=== PATIENT | female | born 1940 | race Caucasian/White ===

== ENCOUNTER 2017-09-18 19:35 | Observation (INO) | payer OTHER, BC ==
--- NOTE | 2017-09-18 20:26 | EDPHY ---
H & P Smoking Status: Never smoked Time Seen by Provider: 09/18/17 20:25 HPI/ROS: Chief complaint. Abdominal pain HPI. 77-year-old female with abdominal pain that began this evening. She was at home and after the abdominal pain got quite severe she got up to go to the bathroom got dizzy and fell. Unwitnessed. There was apparent loss of consciousness. Then she could not get up. She has subsequently had lots of diarrhea and continued mid abdominal cramping. She injured her left arm and right leg however has good range of motion. No chest pain or shortness of breath. Patient had a subarachnoid hemorrhage in June 2017. She has a headache. Posterior head pain and upper neck pain but otherwise no back pain. Recent UTI last week treated with Cipro. ROS Constitutional. Generalized weakness Eyes. no problems with vision ENT. no sore throat, no nasal drainage Cardiovascular. no chest pain Respiratory. no shortness of breath, no cough Abdominal. Mid abdominal pain with diarrhea but no nausea or vomit . no problems urinating MS. Neck pain Skin. no rash Lymph. no swollen glands Neuro. Headache and dizziness and difficulty walking (Julito Gaspar S) Past Medical/Surgical History: Osteoporosis, dyslipidemia, hypothyroid, SAH (Julito Gaspar S) Social History: Single, nonsmoker, no alcohol (Julito Gaspar S) Physical Exam: General Appearance: The alert well-developed female mild distress vital signs are stable Eyes: Pupils equal and round no pallor or injection. ENT, no evidence of head trauma but posterior headache. Respiratory: There are no retractions, lungs are clear to auscultation. Cardiovascular: Regular rate and rhythm. Gastrointestinal: Abdomen is soft mid abdominal pain. No masses. Normal bowel sounds Neurological: Awake and alert, sensory and motor exams grossly normal. Skin: Warm and dry, no rashes. Musculoskeletal: Neck pain. No T, L, S pain Extremities symmetrical, full range of motion. Psychiatric: Patient is oriented X 3, there is no agitation. (Julito Gaspar S) Constitutional: Initial Vital Signs Temperature (C) 36.8 C 09/18/17 19:39 Heart Rate 83 09/18/17 19:39 Respiratory Rate 18 09/18/17 19:39 Blood Pressure 129/90 H 09/18/17 19:39 O2 Sat (%) 97 07/10/18 19:39 O2 Delivery Mode Room Air Allergies/Adverse Reactions: aspirin Allergy (Unknown, Verified 03/31/13 16:37) codeine [Codeine] Allergy (Unknown, Verified 03/31/13 16:37) epinephrine [Epinephrine] Allergy (Unknown, Verified 03/31/13 16:37) latex [Latex] Allergy (Unknown, Verified 03/31/13 16:37) tetracycline [Tetracycline] Allergy (Unknown, Verified 03/31/13 16:37) "pain killers" Allergy (Unknown, Uncoded 03/31/13 16:37) Home Medications: Medication Instructions Recorded LEVOTHYROXINE SODIUM [Synthroid] 100 mcg PO 04/03/11 Anucort-Hc 03/31/13 Flonase 03/31/13 ZERIT 03/31/13 Medical Decision Making - Diagnostics EKG Interpretation: EKG interpreted by me shows normal sinus rhythm normal interval. Left axis deviation. QRS normal there is no significant ST elevation or depression. No arrhythmia. The rate is 90 (Julito Gaspar) Imaging Results: Imaging Impressions Abdomen/Pelvis CT 09/18/17 20:49 Impression: No acute posttraumatic abnormality identified. Results called to Julito Gaspar at 10:08 PM. Final results are concordant with the preliminary interpretation. General information for patients regarding this examination can be found at [email or web address]. If you have questions or comments about this report, please contact me at (hospital) or [phone] (cell). Cervical Spine CT 09/18/17 20:49 Impression: 1. No acute posttraumatic abnormality identified. 2. Arnold-Chiari type I. 2. CT Cervical Spine Without Contrast, 21:26 History: Trauma. Fall. Technique: Multislice helical CT through the cervical spine without contrast from the skull base to T1. Soft tissue and bone evaluation is performed. Sagittal and coronal reconstructions are obtained and reviewed. Dose reduction techniques were utilized. Findings: Cervical alignment is anatomic except for mild retrolisthesis at C5- C6 where the disk space is moderately narrowed, associated with marginal erosive change and small osteophytes. The craniocervical junction is normally aligned. The odontoid process is intact. No vertebral body or posterior element fracture is identified. There is fusion of the right C2-C3 facet joints. 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 The cervical thoracic junction is normally aligned. There is no evidence for epidural or prevertebral hematoma. Impression: No acute posttraumatic abnormality identified. Results called to Dr. Leonel Ro at 21:57 PM. Final results are concordant with the initial interpretation. General information for patients regarding this examination can be found at [email or web address]. If you have questions or comments about this report, please contact me at (hospital) or [phone] (cell). Head CT 09/18/17 20:49 Impression: 1. No acute posttraumatic abnormality identified. 2. Arnold-Chiari type I. 2. CT Cervical Spine Without Contrast, 21:26 History: Trauma. Fall. Technique: Multislice helical CT through the cervical spine without contrast from the skull base to T1. Soft tissue and bone evaluation is performed. Sagittal and coronal reconstructions are obtained and reviewed. Dose reduction techniques were utilized. Findings: Cervical alignment is anatomic except for mild retrolisthesis at C5- C6 where the disk space is moderately narrowed, associated with marginal erosive change and small osteophytes. The craniocervical junction is normally aligned. The odontoid process is intact. No vertebral body or posterior element fracture is identified. There is fusion of the right C2-C3 facet joints. 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 The cervical thoracic junction is normally aligned. There is no evidence for epidural or prevertebral hematoma. Impression: No acute posttraumatic abnormality identified. Results called to Dr. Leonel Ro at 21:57 PM. Final results are concordant with the initial interpretation. General information for patients regarding this examination can be found at [email or web address]. If you have questions or comments about this report, please contact me at (hospital) or [phone] (cell). Chest X-Ray 09/18/17 20:50 Impression: Negative. Chest x-ray reviewed by me is normal CT head negative for trauma. She does have achy arteries type [address] cervical spine negative for trauma Noncontrast abdominal CT shows no significant pathology. Distended gallbladder an bladder (Julito Gaspar) Procedures: IV normal saline, monitor (Julito Gaspar) ED Course/Re-evaluation: Stool sent for Clostridium difficile check as the patient has been recently on antibiotics. Patient continues to have evidence for urinary tract infection though she has been on both Macrobid and Cipro. She is given cephalexin in the emergency department. Urine is sent for culture and sensitivity Re-evaluation at 10:10 p.m.. Patient is stable. Patient and daughters and I discussed imaging and lab results. We discussed treatment plan including recommendation for admission. They expressed understanding and agreement ( Julito Gaspar) [id number]: Patient admitted to the hospital for syncope, generalized weakness, diarrhea, and he recurrent UTI. Spoke with Dr. Villanueva, who agrees to admit. (Jitendra Kwan) Differential Diagnosis: I considered intracranial bleeding as she recently has had subarachnoid hemorrhage. I considered cervical spine injury. Patient had a syncopal episode possibly vasovagal as she had strong abdominal pain. She has been on 2 antibiotics and continues to have a UTI. She certainly may have Clostridium difficile. No obvious evidence for acute coronary syndrome (Julito Gaspar) Care Turn Over: Care to Dr. Kwan at 10:15 p.m. (Julito Gaspar) - Data Points Laboratory Results: Laboratory Results 09/18/17 19:55 09/18/17 19:55 09/18/17 09/18/17 09/18/17 21:44 21:24 20:50 WBC RBC Hgb Hct MCV MCH MCHC RDW Plt Count MPV Neut % (Auto) Lymph % (Auto) [place] % (Auto) Eos % (Auto) Baso % (Auto) Nucleat RBC Rel Count Absolute Neuts (auto) Absolute Lymphs (auto) Absolute Monos (auto) Absolute Eos (auto) Absolute Basos (auto) Absolute Nucleated RBC Immature Gran % Immature Gran # Sodium Potassium Chloride Carbon Dioxide Anion Gap BUN Creatinine Estimated GFR Glucose Calcium POC Troponin I 0.00 ng/mL ng/mL (0.00-0.08) Lipase Urine Color YELLOW Urine Appearance CLEAR Urine pH 6.0 (5.0-7.5) Ur Specific [place] 1.013 (1.002-1.030) Urine Protein NEGATIVE (NEGATIVE) Urine Ketones NEGATIVE (NEGATIVE) Urine Blood 3+ H (NEGATIVE) Urine Nitrate NEGATIVE (NEGATIVE) Urine Bilirubin NEGATIVE (NEGATIVE) Urine Urobilinogen NEGATIVE EU EU (0.2-1.0) Ur Leukocyte Esterase 3+ H (NEGATIVE) Urine RBC 15-25 /hpf H /hpf (0-3) Urine WBC 25-50 /hpf H /hpf (0-3) Ur Epithelial Cells TRACE /lpf /lpf (NONE-1+) Urine Mucus TRACE /lpf /lpf (NONE-1+) Urine Glucose NEGATIVE (NEGATIVE) C. difficile Tox (PCR) Pending 09/18/17 09/18/17 19:55 19:55 WBC 6.86 10^3/uL 10^3/uL (3.80-9.50) RBC 4.62 10^6/uL 10^6/uL (4.18-5.33) Hgb 13.2 g/dL g/dL (12.6-16.3) Hct 39.6 % % (38.0-47.0) MCV 85.7 fL fL (81.5-99.8) MCH 28.6 pg pg (27.9-34.1) MCHC 33.3 g/dL g/dL (32.4-36.7) RDW 12.8 % % (11.5-15.2) Plt Count 328 10^3/uL 10^3/uL (150-400) MPV 9.5 fL fL (8.7-11.7) Neut % (Auto) 62.1 % % (39.3-74.2) Lymph % (Auto) 28.0 % % (15.0-45.0) [place] % (Auto) 7.9 % % (4.5-13.0) Eos % (Auto) 1.3 % % (0.6-7.6) Baso % (Auto) 0.4 % % (0.3-1.7) Nucleat RBC Rel Count 0.0 % % (0.0-0.2) Absolute Neuts (auto) 4.26 10^3/uL 10^3/uL (1.70-6.50) Absolute Lymphs (auto) 1.92 10^3/uL 10^3/uL (1.00-3.00) Absolute Monos (auto) 0.54 10^3/uL 10^3/uL (0.30-0.80) Absolute Eos (auto) 0.09 10^3/uL 10^3/uL (0.03-0.40) Absolute Basos (auto) 0.03 10^3/uL 10^3/uL (0.02-0.10) Absolute Nucleated RBC 0.00 10^3/uL 10^3/uL (0-0.01) Immature Gran % 0.3 % % (0.0-1.1) Immature Gran # 0.02 10^3/uL 10^3/uL (0.00-0.10) Sodium 132 mEq/L L mEq/L (135-145) Potassium 3.5 mEq/L mEq/L (3.3-5.0) Chloride 102 mEq/L mEq/L (97-110) Carbon Dioxide 22 mEq/l mEq/l (22-31) Anion Gap 8 mEq/L mEq/L (8-16) BUN 18 mg/dL mg/dL (7-23) Creatinine 0.6 mg/dL mg/dL (0.6-1.0) Estimated GFR > 60 Glucose 118 mg/dL H mg/dL (70-100) Calcium 9.5 mg/dL mg/dL (8.5-10.4) POC Troponin I Lipase 76 IU/L IU/L (23-300) Urine Color Urine Appearance Urine pH Ur Specific [place] Urine Protein Urine Ketones Urine Blood Urine Nitrate Urine Bilirubin Urine Urobilinogen Ur Leukocyte Esterase Urine RBC Urine WBC Ur Epithelial Cells Urine Mucus Urine Glucose C. difficile Tox (PCR) Medications Given: Discontinued Medications Cephalexin HCl (Keflex) 500 mg PO EDNOW ONE PRN Reason: Protocol Stop: 09/18/17 21:42 Last Admin: 09/18/17 21:57 Dose: 500 mg Sodium Chloride (Ns) 1,000 mls @ 0 mls/hr IV ONCE ONE; Wide Open PRN Reason: Protocol Stop: 09/18/17 20:49 Last Admin: 09/18/17 21:01 Dose: 1,000 mls Point of Care Test Results: Chemistry 09/18/17 21:24 POC Troponin I 0.00 ng/mL ng/mL (0.00-0.08) Departure - Departure Disposition: [facility] Inpatient Acute Clinical Impression: Abdominal pain Qualifiers: Abdominal location: periumbilical Qualified Code(s): R10.33 - Periumbilical pain Syncope Qualifiers: Syncope type: unspecified Qualified Code(s): R55 - Syncope and collapse Urinary tract infection Qualifiers: Urinary tract infection type: acute cystitis Hematuria presence: without hematuria Qualified Code(s): N30.00 - Acute cystitis without hematuria Condition: Fair
[2017-09-18] MEDS ORDERED: NS 1,000 ML IV ONE (20:48)
[2017-09-18 20:58] LABS: PLATELET COUNT 328 10^3/uL (150-400)
[2017-09-18] MEDS ORDERED: IOPAMIDOL (ISOVUE-300) 100 ML BTL ONE (21:13)
[2017-09-18] MEDS ORDERED: CEPHALEXIN 500 MG CAP PO ONE (21:41)
--- NOTE | 2017-09-18 21:56 | CPEKG ---
Heart Rate: 90 RR Interval: 667 P-R Interval: 196 QRSD Interval: 66 QT Interval: 376 QTC Interval: 460 P [place]: 47 QRS [place]: -25 T Wave [place]: 49 EKG Severity - OTHERWISE NORMAL ECG - EKG Impression: SINUS RHYTHM EKG Impression: BORDERLINE LEFT AXIS DEVIATION Electronically Signed By: Julito Gaspar 18-Sep-2017 22:30:29
[2017-09-18] MEDS ORDERED: ACETAMINOPHEN 325 MG TAB PO PRN (22:23)
[2017-09-18] MEDS ORDERED: ONDANSETRON 4 MG/2 ML VIAL IVP PRN (22:23)
[2017-09-18] MEDS ORDERED: NS 1,000 ML IV SCH (22:30)
--- NOTE | 2017-09-18 23:14 | PDGENHP ---
History and Physical - Chief Complaint Abdominal pain, diarrhea, Syncope - History of Present Illness Source-patient provides history appears reliable. Patient's daughter at bedside. EMR was reviewed and case discussed with ED provider. 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 Approximately 5:00 p.m. Patient reports that she had sudden onset of diarrhea. She also developed lower abdominal cramping. She had positive abdominal distension. No nausea vomiting or fevers chills. Patient with the recent diagnosis of a UTI she is status post completed course of ciprofloxacin and just recently 2 days of doxycycline for continued abnormal UA. Patient reports that she has a history of dysuria related to interstitial cystitis for which she has previously undergone injections but she is unsure if this was her Botox or DMSO. Patient denies any melena or hematochezia stool is normal color. She has not had any recent sick contacts. This evening patient patient still did up to walk to the bathroom when she subsequently developed some lightheadedness and had a syncopal episode. She is not sure how long she had loss of consciousness. She did report that afterwards she had left arm pain right knee pain headache and neck pain that was worse from her baseline. She denies any numbness tingling or changes in vision. CT head neck abdomen pelvis were obtained in the emergency department that did not show any acute findings. Patient currently reports that her abdominal pain and distention have improved but still slightly present. She has not had any additional episodes of diarrhea since arrival to the floor. Patient has been able to void without complaints of retention. History Information - Allergies/Home Medication List Allergies/Adverse Reactions: iodine Allergy (Severe, Verified 09/19/17 01:38) Anaphylaxis aspirin Allergy (Unknown, Verified 03/31/13 16:37) codeine [Codeine] Allergy (Unknown, Verified 03/31/13 16:37) epinephrine [Epinephrine] Allergy (Unknown, Verified 03/31/13 16:37) latex [Latex] Allergy (Unknown, Verified 03/31/13 16:37) tetracycline [Tetracycline] Allergy (Unknown, Verified 03/31/13 16:37) "pain killers" Allergy (Unknown, Uncoded 03/31/13 16:37) Home Medications: LEVOTHYROXINE SODIUM [Synthroid] 100 mcg PO 04/03/11 [Last Taken Unknown] Anucort-Hc 03/31/13 [Last Taken Unknown] Flonase 03/31/13 [Last Taken Unknown] ZYRTEC 09/19/17 [Last Taken Unknown] I have personally reviewed and updated: family history, medical history, social history, surgical history - Past Medical History Additional medical history: Hypothyroidism, hemorrhoids, allergic rhinitis, history of subarachnoid hemorrhage June 2017, UTI, Chiari malformation type 1. - Surgical History Additional surgical history: Cervical spine injections. - Family History Additional family history: Mother and siblings with HTN. Father with history of Parkinson's - Social History Smoking Status: Never smoked Alcohol Use: None Drug Use: None Additional social history: Patient lives at the [facility]. Review of Systems Review of Systems: ROS: 10pt was reviewed & negative except for what was stated in HPI & below Constitutional: Reports: no symptoms. Denies: chills, fever EENMT: Reports: no symptoms. Denies: blurred vision, nose congestion, sore throat Cardiac: Reports: syncope. Denies: chest pain, edema, palpitations Respiratory: Reports: no symptoms. Denies: cough, shortness of breath Gastrointestinal: Reports: abdominal pain (See HPI), diarrhea. Denies: vomitting, black stools, rectal bleeding, nausea Genitourinary: Reports: dysuria. Denies: flank pain, hematuria, incontinence, urgency Muscolosketal: Reports: joint pain (Neck pain), muscle pain (Neck) Skin: Reports: other (Vitiligo on her back left greater than right) Neurological: Reports: headache, pre-existing deficit (Slight right-sided weakness compared to the left since SAH.). Denies: emotional problems, numbness , tingling Hematologic/Lymphatic: Reports: no symptoms Immunologic/Allergy: Reports: other (Diet nausea) Physical Exam Physical Exam: Selected Entries 09/18/17 19:39 Heart Rate 83 Respiratory 18 Rate O2 Sat (%) 97 Temperature (C) 36.8 C Blood Pressure 129/90 H Mean Arterial 103 H Pressure (MAP) O2 Delivery Room Air Mode Temperature Oral Source Temp Pulse Resp BP Pulse Ox 36.8 C 83 18 125/75 H 95 09/18/17 19:39 09/18/17 21:02 09/18/17 21:02 09/18/17 21:02 09/18/17 21:02 Constitutional: no apparent distress, chronically ill appearing, other (NAD. Pleasant elderly frail-appearing female is lying quietly in bed. Daughter is at bedside.) Eyes: PERRL, anicteric sclera, EOMI, No scleral injection Ears, Nose, Mouth, Throat: moist mucous membranes, no oral mucosal ulcers, poor dentition (Edentulous on the upper dentition, few missing lower), other (No nasal discharge) Cardiovascular: regular rate and rhythym, systolic murmur (2/6 systolic murmur) , pulses symmetric bilaterally, No edema Peripheral Pulses: 1+: dorsalis-pedis (R), dorsalis-pedis (L) Respiratory: no respiratory distress, no rales or rhonchi, clear to auscultation , No expiratory wheeze, No inspiratory crackles, No respiratory distress Gastrointestinal: normoactive bowel sounds, no palpable masses, tenderness ( Patient complains of some mild discomfort to palpation over the lower abdomen.) , No gonzáles's sign, No guarding, No rebound, No distension Genitourinary: no bladder tenderness, No jones in urethra Skin: warm, normal color, no rashes or abrasions, other (Vitiligo on her back.) Musculoskeletal: full muscle strength, no muscle tenderness Neurologic: AAOx3, sensation intact bilaterally, other (Patient with generalized weakness. She is able to sit up independently. Right-sided weakness slightly noted compared to the left which patient reports is baseline. Grossly nonfocal exam otherwise.), No facial droop Psychiatric: interacting appropriately, not encephalopathic, thought process linear, flat affect, No depressed, No agitated Lab Data & Imaging Review 09/18/17 19:55 09/19/17 04:50 WBC 6.86 10^3/uL (3.80-9.50) 09/18/17 19:55 RBC 4.62 10^6/uL (4.18-5.33) 09/18/17 19:55 Hgb 13.2 g/dL (12.6-16.3) 09/18/17 19:55 Hct 39.6 % (38.0-47.0) 09/18/17 19:55 MCV 85.7 fL (81.5-99.8) 09/18/17 19:55 MCH 28.6 pg (27.9-34.1) 09/18/17 19:55 MCHC 33.3 g/dL (32.4-36.7) 09/18/17 19:55 RDW 12.8 % (11.5-15.2) 09/18/17 19:55 Plt Count 328 10^3/uL (150-400) 09/18/17 19:55 MPV 9.5 fL (8.7-11.7) 09/18/17 19:55 Neut % (Auto) 62.1 % (39.3-74.2) 09/18/17 19:55 Lymph % (Auto) 28.0 % (15.0-45.0) 09/18/17 19:55 [place] % (Auto) 7.9 % (4.5-13.0) 09/18/17 19:55 Eos % (Auto) 1.3 % (0.6-7.6) 09/18/17 19:55 Baso % (Auto) 0.4 % (0.3-1.7) 09/18/17 19: Nucleat RBC Rel Count 0.0 % (0.0-0.2) 09/18/17 19: Absolute Neuts (auto) 4.26 10^3/uL (1.70-6.50) 09/18/17 19:55 Absolute Lymphs (auto) 1.92 10^3/uL (1.00-3.00) 09/18/17 19:55 Absolute Monos (auto) 0.54 10^3/uL (0.30-0.80) 09/18/17 19:55 Absolute Eos (auto) 0.09 10^3/uL (0.03-0.40) 09/18/17 19:55 Absolute Basos (auto) 0.03 10^3/uL (0.02-0.10) 09/18/17 19:55 Absolute Nucleated RBC 0.00 10^3/uL (0-0.01) 09/18/17 19: Immature Gran % 0.3 % (0.0-1.1) 09/18/17 19:55 Immature Gran # 0.02 10^3/uL (0.00-0.10) 09/18/17 19:55 Sodium 132 mEq/L (135-145) L 09/18/17 19:55 Potassium 3.5 mEq/L (3.3-5.0) 09/18/17 19:55 Chloride 102 mEq/L (97-110) 09/18/17 19:55 Carbon Dioxide 22 mEq/l (22-31) 09/18/17 19:55 Anion Gap 8 mEq/L (8-16) 09/18/17 19:55 BUN 18 mg/dL (7-23) 09/18/17 19:55 Creatinine 0.6 mg/dL (0.6-1.0) 09/18/17 19:55 Estimated GFR > 60 09/18/17 19:55 Glucose 118 mg/dL (70-100) H 09/18/17 19:55 Calcium 9.5 mg/dL (8.5-10.4) 09/18/17 19:55 POC Troponin I 0.00 ng/mL (0.00-0.08) 09/18/17 21:24 Lipase 76 IU/L (23-300) 09/18/17 19:55 Urine Color YELLOW 09/18/17 20:50 Urine Appearance CLEAR 09/18/17 20:50 Urine pH 6.0 (5.0-7.5) 09/18/17 20:50 Ur Specific [place] 1.013 (1.002-1.030) 09/18/17 20:50 Urine Protein NEGATIVE (NEGATIVE) 09/18/17 20:50 Urine Ketones NEGATIVE (NEGATIVE) 09/18/17 20:50 Urine Blood 3+ (NEGATIVE) H 09/18/17 20:50 Urine Nitrate NEGATIVE (NEGATIVE) 09/18/17 20:50 Urine Bilirubin NEGATIVE (NEGATIVE) 09/18/17 20:50 Urine Urobilinogen NEGATIVE EU (0.2-1.0) 09/18/17 20:50 Ur Leukocyte Esterase 3+ (NEGATIVE) H 09/18/17 20:50 Urine RBC 15-25 /hpf (0-3) H 09/18/17 20:50 Urine WBC 25-50 /hpf (0-3) H 09/18/17 20:50 Ur Epithelial Cells TRACE /lpf (NONE-1+) 09/18/17 20:50 Urine Mucus TRACE /lpf (NONE-1+) 09/18/17 20:50 Urine Glucose NEGATIVE (NEGATIVE) 09/18/17 20:50 C. difficile Tox (PCR) NEGATIVE (NEGATIVE) 09/18/17 21:44 Imaging Review: Chest x-ray-image reviewed myself report is still pending. Some hyper expansion without any consolidations or acute changes. 1. CT Head Without Contrast, 21:26 History: Trauma. Fall. Technique: Noncontrast images through the head. Soft tissue and bone window evaluation is performed. Dose reduction techniques were utilized. Findings: There is Arnold-Chiari type I with the cerebellar tonsils coursing below the foramen magnum by approximately 6 mm, to the level of the upper C1 arch. There is no syringobulbia There is no evidence for hemorrhage, mass lesion, acute infarction, intracranial edema, hydrocephalus or abnormal intracranial calcification. No subarachnoid blood is identified. There is no midline shift. The ambient cistern is patent. Bone window evaluation reveals normally aerated paranasal and mastoid sinuses. 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 There is no evidence of pneumocephalus. There is no linear or depressed skull fracture. 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 Impression: 1. No acute posttraumatic abnormality identified. 2. Arnold-Chiari type I. 2. CT Cervical Spine Without Contrast, 21:26 History: Trauma. Fall. Technique: Multislice helical CT through the cervical spine without contrast from the skull base to T1. Soft tissue and bone evaluation is performed. Sagittal and coronal reconstructions are obtained and reviewed. Dose reduction techniques were utilized. Findings: Cervical alignment is anatomic except for mild retrolisthesis at C5- C6 where the disk space is moderately narrowed, associated with marginal erosive change and small osteophytes. The craniocervical junction is normally aligned. The odontoid process is intact. No vertebral body or posterior element fracture is identified. There is fusion of the right C2-C3 facet joints. 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 The cervical thoracic junction is normally aligned. There is no evidence for epidural or prevertebral hematoma. Impression: No acute posttraumatic abnormality identified. Results called to Dr. Leonel Ro at 21:[address] Scan of the Abdomen and Pelvis (Without Contrast), 9:36 PM Clinical Indications: Trauma. Fall. Technique: The patient stated that she is ALLERGIC to contrast. Multidetector noncontrast helical CT imaging was performed from the diaphragm to the symphysis pubis. Dose reduction techniques were utilized. Findings: Abdomen: The lung bases are clear, and there is no pleural fluid. There is no basilar pneumothorax or pulmonary contusion. The liver and spleen are normal without evidence of laceration or subcapsular hematoma formation. The gallbladder is distended. The pancreas looks normal. The kidneys do not show evidence for laceration, cortical contusion, or obstruction. There is no free air or free fluid. Pelvis: The urinary bladder is distended, and intact. There is rectal and vaginal prolapse. No free fluid in the pelvis. Bowel loops are normal. No pelvic or hip fracture is identified. The spine looks normal from mid T10 through the coccyx. Impression: No acute posttraumatic abnormality identified. Results called to Julito Gaspar at 10:08 PM. Final results are concordant with the preliminary interpretation. General information for patients regarding this examination can be found at [email or web address]. Visualized and Interpreted Chest x-ray results: Yes Visualized and Interpreted imaging results: Yes Visualized and Interpreted EKG results: Yes EKG additional interpertation: NSR 90s. No acute ST changes. QTC 460. Assessment & Plan Assessment: 77-year-old female with a history of chronic neck pain, interstitial cystitis, hypothyroidism who presents emergency department today with complaints of abdominal pain diarrhea and syncope. #Abdominal pain (Acute) - patient with some increased bowel gas but now evidence of obstruction or inflammatory process. She did have some episodes of diarrhea has been on antibiotics additionally patient has been taking stool softeners. Patient has had several on nonbloody bouts of diarrhea and since that time does feel better and her distention has improved. Will make simethicone available p.r.n.. Her C diff did return negative. She is afebrile and without leukocytosis to do not suspect an infectious diarrhea. Tylenol will be available p.r.n.. Advancing diet as tolerated to regular. Patient may consider a probiotic upon discharge and this was discussed with her in her daughter. It is not available on hospital formulary. #Diarrhea - as noted above. Negative for C diff. #Syncope (Acute) - differential diagnosis including orthostatic versus vasovagal response in setting of abdominal pain and diarrhea vs less likely related to her Chiari malformation or hydrocephalus. Will check orthostatic blood pressures. Patient will be monitored on telemetry overnight to ensure there is no evidence of arrhythmia. Patient will also receive IV fluid hydration overnight. She is currently asymptomatic. CT head was negative for any evidence of acute findings. Fall precautions. # dysuria - ddx UTI versus interstitial cystitis symptoms patient with history of UTI in symptoms which were treated on with appropriately dosed antibiotics. Patient does continue to have symptoms but after further discussion with her and her daughter appears that patient has a history of interstitial cystitis. She has not been evaluated by Urology in some time and is followed at [facility] however has been a year since her last assessment. Patient was previously receiving injections but it is unclear if this was Botox or DSMO instillation. Patient did was noted to have some prominence of her bladder after voiding on CT and again over the course of her exam she did have bladder distention. Repeat exam currently patient without any distention will plan to do a postvoid bladder scans to ensure she is not having any issues with retention. Will also try to obtain outside records for culture and sensitivities. Hold off on further on antibiotics at this time patient is afebrile and has no leukocytosis. #Hyponatremia - mild decline. Likely related to volume loss in setting of acute diarrhea. IV fluids overnight and repeat BMP in the morning. chronic medical issues #Chronic neck pain - patient with history of Chiari malformation as well as evidence of degenerative disc disease. Patient reports she has undergone injections and is not a surgical candidate. Since her syncopal episode she reports that her neck pain is worse from baseline. Supportive care and Tylenol p.r.n.. Patient is intolerant of opiates. #Hypothyroidism - resume patient's replacement once med rec is available. #Allergic rhinitis - Flonase p.r.n. FEN - IV fluid supplementation overnight. Electrolyte monitoring replacement if needed. Diet as tolerated. PPX - SCDs. Consider Lovenox if patient should stay additional day. Otherwise encourage mobilization. Cor status-full Disposition-patient admitted observation status on [facility] floor with remote telemetry for IV fluid therapy and further evaluation of her diarrhea/abdominal pain.
[2017-09-19] MEDS: DICYCLOMINE 10 MG CAP PO PRN ×2 (00:48→16:07)
[2017-09-19] MEDS ORDERED: IOPAMIDOL (ISOVUE-300) 100 ML BTL ONE (07:24)
[2017-09-19] MEDS ORDERED: ENOXAPARIN 40 MG/0.4 ML SYR SC SCH (09:00)
[2017-09-19] MEDS: SIMETHICONE 80 MG TAB CHEW PO SCH ×2 (09:50→16:05)
[2017-09-19] MEDS ORDERED: ACETAMINOPHEN 500 MG TAB PO PRN (10:00)
[2017-09-19] MEDS ORDERED: CHOLECALCIFEROL VIT D3 2,000 UNITS TAB/CAP PO SCH (10:00)
[2017-09-19] MEDS ORDERED: CYANO/VITAMIN B12 1000 MCG TAB PO SCH (10:00)
[2017-09-19] MEDS ORDERED: ASPIRIN 81 MG CHEWABLE TAB PO SCH (10:00)
[2017-09-19] MEDS ORDERED: DOCUSATE SODIUM 100 MG CAP PO SCH (10:00)
[2017-09-19 11:16] VITALS: BP 112/53
--- NOTE | 2017-09-19 12:06 | ASMTCMCOM ---
CM Note CM Note Notes: Patient admitted for diarrhea and syncope. I met with patient. She lives at the [facility] and has assistance with showering and light housekeeping. She walks with a walker to meals in the dining fong. She has [facility]. However, patient is incredibly anxious about returning to the [facility]. She feels that they didn't respond fast enough when she fell and she worries that they're not the right match for her needs. I suggested SNF for short term rehab and/or transfer to another facility. She will talk to her daughters about this and appreciates our providers doing the same. PT/OT evals pending. I've sent updates to [facility] as well as a preliminary referral to [facility]. Case Management will follow. Date Signed: 09/19/2017 12:06 PM Electronically Signed By:Anitha Mcqueen RN
--- NOTE | 2017-09-19 14:43 | PDIAF ---
- Diagnosis Diagnosis: Possible UTI, Abd pain, Diarrhea Code Status: Full Code - Medication Management Discharge Medications: Medications to Continue on Transfer Acetaminophen [Tylenol ES 500 mg (*)] 1,000 mg PO BID@ PRN 09/19/17 [Last Taken 09/18/17 10:00] Aspirin [Aspirin 81mg (*)] 81 mg PO DAILY10 09/19/17 [Last Taken 09/18/17] Atorvastatin Calcium [Lipitor 10 mg (*)] 10 mg PO HS 09/19/17 [Last Taken ] Calcium Carbonate [Oyster Shell Calcium 500 mg (*)] 500 mg PO TUTH@10 09/19/17 [ Last Taken 09/18/17] Cephalexin [Keflex (*)] 500 mg PO Q6H #12 cap 09/19/17 [Last Taken Unknown] Cholecalciferol Vit D3 [Vitamin D3 2000 units tab (OTC)] 2,000 units PO DAILY10 09/19/17 [Last Taken 09/18/17] Cyanocobalamin [Vitamin B12 (*)] 2,000 mcg PO DAILY10 09/19/17 [Last Taken 09/18] Dicyclomine [Bentyl 10 MG (*)] 10 mg PO QID PRN #20 cap 09/19/17 [Last Taken Unknown] Docusate Sodium [Colace 100 MG (*)] 100 mg PO BID@09/19/17 [Last Taken 12/27 10:00] Levothyroxine [Synthroid 100 mcg (*)] 100 mcg PO DAILY06 09/19/17 [Last Taken ] Rabeprazole Sodium [Aciphex] 20 mg PO BID 09/19/17 [Last Taken 09/18/17 06:30] Sennosides/Docusate Sodium [Senna-Docusate Sodium Tablet] 2 each PO HS 09/19/17 [Last Taken 09/17/17] Vamp Seamer Antibiotics: Keflex 500mg q6h Vamp Seamer Antibiotic Stop Date: 09/22/17 Discharge Medications: Refer to the Discharge Home Medication list for PRN reason. PICC Care - Routine: N/A - Orders Services needed: Home Care, Registered Nurse, Master Remote Control Mirror Installer, Physical Therapy, Occupational Therapy Home Care Face to Face: I certify that this patient was under my care and that I had the required [id number] encounter meeting the encounter requirements on the discharge day. My findings support the fact that the patient is homebound as defined in Home Care Face to Face Continued: CMS Chapter 7 Medicare Benefits Manual 30.1.1 , The condition of the patient is such that there exists a normal inability to leave home and consequently, leaving home would require a considerable and taxing effort. Isolation Type: None Oxygen: NA Diet Recommendation: no restrictions on diet Leon: Not applicable Activity/Weight Bearing Restrictions: as tolerated Additional Instructions: Please follow-up with your neurologist as scheduled - Follow Up Care Current Providers and Referrals: MARSHALL BERGER MD [Other] - As per Instructions
--- NOTE | 2017-09-19 14:55 | ASMTDCNOTE ---
Case Management Discharge Discharge Order Complete? Answers: Yes Patient to Obtain Answers: Independently Medications Transportation Arranged Answers: Family/Friends Faxed Final Orders Answers: Yes Family Notified Answers: Yes Discharge Comments Notes: Patient discharged home to the [facility]. Daughter Melly will stay with her for next few nights. Home care services resumed through [facility]. Orders sent to [facility] and the [facility]. Date Signed: 09/19/2017 02:54 PM Electronically Signed By:Anitha Mcqueen RN
--- NOTE | 2017-09-19 17:30 | PDDCSUM ---
Discharge Summary Discharge Summary: DISCHARGE SUMMARY FOLLOW-UP ITEMS: 1. Patient's receive follow-up brain MRI through primary neurologist 2. Continue to work on chronic pain management strategies for both head and abdomen DATE OF ADMISSION: 09/18/2017 DATE OF DISCHARGE: 09/19/2017 DISCHARGE DIAGNOSES: 1. Acute diarrhea 2. Acute hyponatremia 3. Possible urinary tract infection 4. Chronic interstitial cystitis 5. Chiari 1 malformation CONSULTATIONS: None PROCEDURES / IMAGING: CT of the abdomen without contrast demonstrates no nephrolithiasis Chest x-ray demonstrates no infiltrate Cervical spine and brain CT demonstrating chiari 1 malformation but no other abnormalities CHIEF COMPLAINT: Acute confusion, headache, diarrhea, near-syncope,, lower abdominal discomfort SUBJECTIVE: Patient with some ongoing lower abdominal discomfort, intermittent headache PHYSICAL EXAM ON DISCHARGE: Systolic blood pressure 100-120, heart rate 70-80, afebrile overnight, satting on room air, alert awake oriented x3, motor strength is 5/5 left upper extremity , 4/5 right upper extremity, 4/5 right lower extremity, 5/5 left lower extremity , abdomen is soft nontender nondistended, bowel sounds are present, lungs are clear to auscultation, she is alert awake oriented x3 with no apparent distress LABS ON DISCHARGE: Serum sodium 138, potassium 3.8, creatinine 0.5, urinalysis with white blood cells and 3+ leukocyte esterase, lipase normal, C diff and GI PCR negative HOSPITAL COURSE BY PROBLEM: The patient presented with acute confusion, headache, diarrhea, abdominal discomfort, most likely secondary to a GI irritant and possibly connected to a possible urinary tract infection with those resultant symptoms. She had recently been treated for possible urinary tract infection with ciprofloxacin for what she was told was E coli, and is possible that she either experienced a new urinary tract infection from a different organism, or her sensitivity on culture was inaccurate. She received Keflex in the emergency department, IV fluids, and has improved. Her serum sodium level was also decreased secondary to her lower GI losses, and this has corrected with IV fluids. She had negative orthostatic vital signs prior to discharge. It should be noted that the patient has a known history of Chiari 1 malformation , for which she is seen by a primary neurologist and she has an upcoming MRI for follow-up. 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 There is no indication for additional neuro workup at this time. She also has a known history of interstitial cystitis, resulting in chronic abdominal symptoms. I have encouraged the patient to utilize Bentyl as needed, as her abdominal symptoms have been exacerbated with her diarrhea, most likely secondary to hyper awareness of peristalsis. She will also utilize Tylenol as needed for her headache, which is similar to her chronic level of head pain. The patient feels particularly concerned about her level of care at her assisted living. She was seen by our rn case mgr as well as our therapist, and they recommended home health care with PT, OT, social work, as well as family assistance, which the patient will have over the next several nights. After arranging all the services, it was deemed that the patient was safe for discharge. DISCHARGE MEDICATIONS: Please see official discharge medication reconciliation sheet in chart , continue all home medications with the addition of Bentyl as needed, and 3 total days of Keflex 500 mg 4 times daily. DISCHARGE INSTRUCTIONS: Please follow-up with your primary neurologist as well as your primary urologist.
[2017-09-19] MEDS ORDERED: ATORVASTATIN CALCIUM 10 MG TAB PO SCH (21:00)
[2017-09-19] MEDS ORDERED: SENNOSIDES/DOCUSATE SODIUM TAB PO SCH (21:00)
[2017-09-20] MEDS ORDERED: LEVOTHYROXINE 100 MCG TAB PO SCH (06:00)
[2017-09-20] MEDS ORDERED: PANTOPRAZOLE SODIUM 40 MG TAB PO SCH (09:00)
[2017-09-20] MEDS ORDERED: CALCIUM CARBONATE 500 MG TAB PO SCH (10:00)
== END 2017-09-19 16:24 | disposition home health service (06) ==
LOC: EDUNIT# → F3E 23:40
PROVIDERS: ADMIT Family Medicine; ATTEND Internal Medicine
DX: R19.7 Diarrhea, unspecified (principal); R10.30 Lower abdominal pain, unspecified; R55 Syncope and collapse; E87.1 Hypo-osmolality and hyponatremia; N30.10 Interstitial cystitis (chronic) without hematuria; E86.9 Volume depletion, unspecified; G93.5 Compression of brain; R41.0 Disorientation, unspecified; R51 Headache; E78.5 Hyperlipidemia, unspecified; E03.9 Hypothyroidism, unspecified; M54.2 Cervicalgia; G81.91 Hemiplegia, unspecified affecting right dominant side; G89.29 Other chronic pain; J30.9 Allergic rhinitis, unspecified; Z87.440 Personal history of urinary (tract) infections; Z86.79 Personal history of other diseases of the circulatory system
CPT/HCPCS: 70450; 71045; 72125; 74176; 93005; 96360; 97116; 97161; 99285; G0378; G8978; G8979; J1650; Q9967; 84484-PO